=== PATIENT | male | born 1995 | race Caucasian/White ===

== ENCOUNTER → 2017-08-05 | Outpatient (CLI) | payer BC ==
--- NOTE | 2017-08-05 15:42 | DIAGNOSTIC IMAGING REPORT ---
SINUS CT CT DOSE: 554.44 mGycm HISTORY: J01.90,ACUTE SINUSITIS TECHNIQUE: Multiaxial CT images of the paranasal sinuses were performed and reformatted in the coronal plane without the use of contrast. A dose lowering technique was utilized adhering to the principles of ALARA. COMPARISON: None. FINDINGS: The frontal sinuses, left ethmoid air cells, sphenoid sinuses, and left maxillary sinus are clear. The visualized mastoid air cells are clear. No fluid levels within the paranasal sinuses. There is a 7 mm retention cyst within the single right posterior ethmoid air cell and an 8 mm retention cyst within the right maxillary sinus posteriorly. The lamina papyracea and orbital floors are intact. The bilateral ostiomeatal units are patent. The nasal septum is essentially midline. Small right-sided terry bullosa. Prominence of the adenoid tonsils may be age-related. The pterygopalatine fossa are maintained. The visualized brain parenchyma is within normal limits. The orbits are unremarkable. IMPRESSION: 1. There are 2 subcentimeter retention cysts within the paranasal sinuses. Otherwise, the paranasal sinuses and mastoid air cells are clear. 2. The nasal septum is essentially midline. 3. Small right-sided terry bullosa. Electronically signed by: Dario Mancuso M.D. 08/05/2017 3:41 PM Dictated Date/Time: 08/05/2017 3:35 PM
== END | disposition home or self-care (01) ==
LOC: C.CTS 08:09
PROVIDERS: ATTEND Pediatrics
DX: J01.90 Acute sinusitis, unspecified (principal); J34.1 Cyst and mucocele of nose and nasal sinus